=== PATIENT | female | born 1975 | race Caucasian/White ===

== ENCOUNTER 2017-07-22 18:48 | Emergency (ER) | payer OTHER ==
[2017-07-22 19:01] VITALS: BP 104/76; PULSE 71; TEMP 98.2; BMI 27.3
--- NOTE | 2017-07-22 19:11 | PDOC ---
History of Present Illness - General Chief Complaint: Back Pain Stated Complaint: PAIN Time Seen by Provider: 07/22/17 19:10 History Source: Patient Exam Limitations: No Limitations - History of Present Illness Initial Comments: 07/22/17 19:10 CHIEF COMPLAINT: [Left Lower back pain] HISTORY OF PRESENT ILLNESS: 42-year-old female, denies any significant medical history currently on no medication presents with left lower back pain for greater than 4 months,.[ Pain radiates down left lateral leg, no neurosensory deficits, no bowel or bladder difficulty incontinence or urinary retention, no saddle anesthesia, no footdrop. No history of IVDU or history of cancer. Patient reports pain is worse when walking no pain when at rest. Denies any trauma.] REVIEW OF SYSTEMS: GENERAL: Afebrile, denies any weakness RESPIRATORY: No cough, wheezing, or hemoptysis. CARDIAC: No chest pain or shortness of breath MUSCULOSKELETAL:No point tenderness. Pain only on left lower back. SKIN : No erythema, no bruising, no deformity. GI/: Denies any abdominal pain, no urinary difficulty, incontinence or urinary retention. RECTAL: Denies any difficulty this A.m. NEUROLOGICAL: Denies any numbness or tingling. No neurosensory deficits. PHYSICAL EXAM: GENERAL: The patient is awake, alert, and fully oriented, in no acute distress. RESPIRATORY: Lungs clear bilaterally, no rhonchi wheezes or crackles CARDIAC: S1-S2 audible, no murmur rub or gallop MUSCULOSKELETAL: Pain to left lower back, pain over SI joint, pain radiating to left lateral leg, no tingling or sensory deficit. Less than 2 second cap refill , +4 popliteal and pedal pulses. GI/: Abdomen soft, nontender, nondistended. No rebound tenderness. No masses palpable. MUSCULOSKELETAL: No spinal point tenderness. Pain over SI joint, Normal reflexive and no deficits to sensation or strength. RECTAL: [Deferred patient with no neurological findings] SKIN: Warm, Dry, normal turgor, no erythema, no edema no bruising. Past History - Past Medical History Allergies/Adverse Reactions: Allergies Allergy/AdvReac Type Severity Reaction Status Date / Time No Known Allergies Allergy Verified 07/22/17 18:57 Home Medications: Ambulatory Orders Naproxen [Naprosyn -] 500 mg PO BID #20 tablet 07/22/17 COPD: No Other medical history: DENIES. - Surgical History Abdominal Surgery: Yes (left ovary removed) - Suicide/Smoking/Psychosocial Hx Smoking History: Never smoked Have you smoked in the past 12 months: No Hx Alcohol Use: No Drug/Substance Use Hx: No Substance Use Type: None *Physical Exam - Vital Signs Last Vital Signs Temp Pulse Resp BP Pulse Ox 98.2 F 71 19 104/76 100 07/22/17 18:57 07/22/17 18:57 07/22/17 18:57 07/22/17 18:57 07/22/17 18:57 Medical Decision Making - Medical Decision Making 07/22/17 19:39 A/P: Patient with left lateral lower back pain, side pain, only reproduced with movement and walking. Which pain has been greater than 4 months, intermittent, exacerbated more when at work. 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 Denies any injury, no fever. When taking Motrin at night resolves pain. I will give Toradol 60 mg while in ER, recommend follow-up with orthopedics for further management. Bursitis, sciatica versus injury to lower lumbar. 07/22/17 21:37 Pain is resolved after Toradol will DC patient home follow-up with orthopedics, anti-inflammatories for pain. *DC/Admit/Observation/Transfer Diagnosis at time of Disposition: Hip pain Qualifiers: Laterality: left Qualified Code(s): M25.552 - Pain in left hip - Discharge Dispostion Disposition: HOME Condition at time of disposition: Stable Admit: No - Prescriptions Prescriptions: Naproxen [Naprosyn -] 500 mg PO BID #20 tablet - Referrals Referrals: Kalie Mendoza MD [Primary Care Provider] - - Patient Instructions Additional Instructions: Naprosyn for 7 days, please take with food, if pain persists after course of anti-inflammatory therapy recommend follow-up with orthopedics. - Post Discharge Activity Forms/Work/School Notes: Back to Work
[2017-07-22] MEDS ORDERED: KETOROLAC TROMETHAMINE 60 MG/2 ML VIAL IM ONE (19:26)
[2017-07-22] MEDS ORDERED: KETOROLAC TROMETHAMINE 60 MG/2 ML VIAL ONE (19:28)
== END 2017-07-22 20:23 | disposition home or self-care (01) ==
LOC: JERFT 18:48
DX: M25.552 Pain in left hip (principal)
CPT/HCPCS: 99281-25

== ENCOUNTER 2020-03-16 20:29 | Emergency (ER) | payer OTHER | END 2020-03-16 21:25 | disposition home or self-care (01) | LOC: JVIRT 20:29 | DX: Z03.818 Encounter for observation for suspected exposure to other biological agents ruled out (principal) | CPT/HCPCS: C9803; G2012-GT; U0003 ==